=== PATIENT | male | born 2000 | race Caucasian/White ===

== ENCOUNTER 2020-12-28 15:47 | Emergency (ER) | payer OTHER ==
[2020-12-28 15:54] VITALS: BP 123/75; PULSE 88; RESP 20; TEMP 97.7
[2020-12-28] MEDS ORDERED: DIPH,PERTUS(ACELL)TETVAC-LF 0.5 ML VIAL IM ONE ×2 (16:07→16:57)
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
== END 2020-12-28 17:47 | disposition home or self-care (01) ==
LOC: EC 15:47
DX: S50.312A Abrasion of left elbow, initial encounter (principal); S50.311A Abrasion of right elbow, initial encounter; V89.2XXA Person injured in unspecified motor-vehicle accident, traffic, initial encounter; Y99.0 Civilian activity done for income or pay; Z23 Encounter for immunization
CPT/HCPCS: 90471; 90715; 99283

== ENCOUNTER → 2022-11-11 | Outpatient (CLI) | payer MEDICAID ==
--- NOTE | 2022-11-12 13:19 | CA ---
Transthoracic Echo Report Name: Cliff No Age: 22 Gender: M : 2000 Exam Date: 11/11/2022 11:36 Exam Location: [facility] Ht (in): 74 Wt (lb): 258 Ordering Physician: Krzysztof Mercado DO Attending/Referring Phys: Mary Ireland [facility] Front Desk Assistant Cindi Conde RDCS Procedure CPT: Indications: Z82.41 Cardiac Hx: Technical Quality: Fair Contrast 1: Total Dose (mL): Contrast 2: Total Dose (mL): MEASUREMENTS (Male / Female) Normal Values 2D ECHO LV Diastolic Diameter PLAX 3.8 cm 4.2 - 5.9 / 3.9 - 5.3 cm LV Systolic Diameter PLAX 2.1 cm IVS Diastolic Thickness 1.3 cm 0.6 - 1.0 / 0.6 - 0.9 cm LVPW Diastolic Thickness 1.1 cm 0.6 - 1.0 / 0.6 - 0.9 cm LV Relative Wall Thickness 0.6 RV Internal Dim ED PLAX 3.3 cm LA Volume 65.9 cm??? 18 - 58 / 22 - 52 cm??? M-MODE Aortic Root Diameter MM 2.7 cm LA Systolic Diameter MM 3.9 cm LA Ao Ratio MM 1.4 AV Cusp Separation MM 2.1 cm DOPPLER AV Peak Velocity 104.6 cm/s AV Peak Gradient 4.4 mmHg AV Mean Velocity 84.6 cm/s AV Mean Gradient 3.0 mmHg AV Velocity Time Integral 22.2 cm LVOT Peak Velocity 90.3 cm/s LVOT Peak Gradient 3.3 mmHg LVOT Velocity Time Integral 21.3 cm MV Area PHT 5.7 cm??? Mitral E Point Velocity 73.2 cm/s Mitral A Point Velocity 51.6 cm/s Mitral E to A Ratio 1.4 MV Deceleration Time 134.0 ms MV E' Velocity 10.3 cm/s Mitral E to MV E' Ratio 7.1 TR Peak Velocity 203.0 cm/s TR Peak Gradient 16.5 mmHg Right Ventricular Systolic Press 20.8 mmHg FINDINGS Left Ventricle Left ventricular cavity size normal. Normal left ventricular wall thickness. Normal left ventricular systolic function with no obvious regional wall motion abnormalities. Left ventricular ejection fraction is estimated at 55 %. Right Ventricle Normal right ventricular size and function. Right ventricular systolic pressure within normal limits. Right Atrium Normal right atrial size. Left Atrium Birderline left atrial size. Mitral Valve Structurally normal mitral valve. No mitral stenosis, regurgitation or prolapse. Aortic Valve Trileaflet aortic valve. No aortic valve stenosis or regurgitation. Tricuspid Valve Structurally normal tricuspid valve. Mild tricuspid regurgitation. Pulmonic Valve Trace pulmonic regurgitation. Pericardium No thickening/calcification of the pericardium. Aorta Normal size aortic root and proximal ascending aorta. CONCLUSIONS Left ventricular ejection fraction 55% No mitral regurgitation Mild tricuspid regurgitation RVSP 20 Previewed by: Dr. Kadeem Vaz DO (Electronically Signed) Final Date: 12 November 2022 13:19
== END | disposition home or self-care (01) ==
LOC: RADECHMAIN 11:32
PROVIDERS: ATTEND Family Medicine
DX: I36.1 Nonrheumatic tricuspid (valve) insufficiency (principal); Z82.41 Family history of sudden cardiac death
CPT/HCPCS: 93306

== ENCOUNTER 2024-12-18 13:27 | Emergency (ER) | payer MEDICAID ==
[2024-12-18 13:39] VITALS: RESP 18
[2024-12-18 14:34] LABS: Basophils # (A) 0.02 10*3/uL (0.00-0.10); Basophils % (A) 0.4 %; Eosinophils # (A) 0.02 10*3/uL (0.04-0.35); Eosinophils % (A) 0.4 %; HCT 45.2 % (39.6-50.0); HGB 16.3 g/dL (13.0-17.0); Lymphocytes # (A) 0.98 10*3/uL (0.90-5.00); Lymphocytes % (A) 20.5 %; MCH 32.5 pg (27.0-32.0); MCHC 36.1 g/dL (32.0-37.0); MCV 90.2 fL (80.0-97.0); Mean Platelet Volume 11.2 fL (9.5-12.2); Monocytes % (A) 6.3 %; Neutrophils # (A) 3.47 10*3/uL (1.80-7.70); Neutrophils % (A) 72.4 %; Platelet Count 217 10*3/uL (140-440); RBC 5.01 10*6/uL (4.40-5.60); RDW 12.1 % (11.5-14.5); WBC 4.79 10*3/uL (4.50-10.00)
[2024-12-18 14:45] LABS: ALT 37 U/L (4-49); AST 25 U/L (17-59); African American GFR (CKD) >90 (>60 ml/min/1.73 sqM); Albumin 4.8 g/dL (3.5-5.0); Alkaline Phosphatase 54 U/L (38-126); Anion Gap 9 mmol/L; Blood Urea Nitrogen 13 mg/dL (9-20); Calcium 10.2 mg/dL (8.4-10.2); Carbon Dioxide 29 mmol/L (22-30); Chloride 104 mmol/L (98-107); Glucose 85 mg/dL (74-99); Magnesium 1.9 mg/dL (1.6-2.3); Non-African American GFR(CKD) >90 (>60 ml/min/1.73 sqM); Potassium 4.3 mmol/L (3.5-5.1); Sodium 142 mmol/L (137-145); Total Bilirubin 0.7 mg/dL (0.2-1.3); Total Protein 7.3 g/dL (6.3-8.2)
[2024-12-18 14:48] LABS: Partial Thromboplastin Time 27.6 sec (22.0-30.0); Prothrombin Time 11.2 sec (10.0-12.5)
[2024-12-18] MEDS: SODIUM CHLORIDE 0.9% 1,000 ML IV STA (14:55)
[2024-12-18] MEDS: KETOROLAC 15 MG/ML 1 ML VIAL IVP STA (14:56)
[2024-12-18] MEDS: LIDOCAINE 4% PATCH TOPICAL ONE (14:58)
--- NOTE | 2024-12-18 15:10 | XR ---
EXAMINATION TYPE: XR chest 2V DATE OF EXAM: 12/18/2024 3:07 PM COMPARISON: None TECHNIQUE: XR chest 2V Frontal and lateral views of the chest. CLINICAL INDICATION:Male, 24 years old with history of Chest Pain; FINDINGS: Lungs/Pleura: There is no evidence of pleural effusion, focal consolidation, or pneumothorax. Pulmonary vascularity: Unremarkable. Heart/mediastinum: Cardiomediastinal silhouette is unremarkable. Musculoskeletal: No acute osseous pathology. IMPRESSION: No acute cardiopulmonary disease/process. [facility], , 12/18/2024 3:08 PM
--- NOTE | 2024-12-18 15:27 | ED ---
General Adult HPI - General Chief complaint: Chest Pain Stated complaint: Chest pain,Constantino arm numbness Time Seen by Provider: 12/18/24 14:26 Source: patient, RN notes reviewed, old records reviewed Mode of arrival: ambulatory Limitations: no limitations - History of Present Illness Initial comments: 24-year-old male presents emergency department for chest wall pain. Has been present for multiple days. Occasionally has his fingers to go numb as well. States he occasionally has in his forearms to. Currently does not have the numbness. Has a family history of cardiac disease. Denies any medical problems for himself. 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 Certain positions will make his hands go numb. States that his chest pain is reproducible on palpation with certain movements. Presents for further evaluation. Denies any cough, congestion, shortness of breath. Denies any nausea or vomiting or abdominal pain. Presents for further evaluation at this time. - Related Data Previous Rx's Medication Instructions Recorded Lidocaine 5% Patch [Lidoderm 5% 1 patch TOPICAL DAILY PRN 14 Days 12/18/24 Patch] #14 patch Allergies Allergy/AdvReac Type Severity Reaction Status Date / Time No Known Allergies Allergy Verified 12/18/24 13:39 Review of Systems ROS Statement: Those systems with pertinent positive or pertinent negative responses have been documented in the HPI. Review of Systems: CONST: Denies fever EYES: Denies blurry vision ENT: Denies nasal congestion C/V: Endorses chest wall pain RESP: Denies shortness of breath GI: Denies abdominal pain : Denies dysuria SKIN: Denies rash. MSK: Denies joint pain. NEURO: Denies headache ROS Other: All systems not noted in ROS Statement are negative. Past Medical History Past Medical History: No Reported History History of Any Multi-Drug Resistant Organisms: None Reported Past Surgical History: No Surgical Hx Reported Past Psychological History: No Psychological Hx Reported Smoking Status: Never smoker Past Alcohol Use History: None Reported Past Drug Use History: None Reported General Exam - General Exam Comments Initial Comments: General: Appears in no acute distress. HEAD: Normal with no signs of head trauma. EYES: PERRLA, EOMI, conjunctiva normal, no discharge. ENT: Hearing grossly intact, normal oropharynx. RESPIRATORY: Clear breath sounds bilaterally. No wheezes, rales, or rhonchi. C/V: Regular rate and rhythm. S1 and S2 auscultated, no edema, peripheral pulses 2+ and intact throughout ABD: Abd is soft, nontender, nondistended EXT: Reproducible left upper chest wall tenderness to palpation over the pectoral muscle. No obvious deformity. SKIN: No rashes or lesions observed on exposed skin. NEURO: Alert and oriented x 4.No focal deficits. No numbness. Patient's hand numbness is reproduced with the Tinel's sign. Suspect possible carpal tunnel. Limitations: no limitations Course Vital Signs 12/18/24 13:33 Temperature 98.2 F Pulse Rate 77 Respiratory 18 Rate Blood Pressure 113/71 O2 Sat by Pulse 99 Oximetry Medical Decision Making - Medical Decision Making Was pt. sent in by a medical professional or institution (, PA, ORTHOTICS PROSTHETICS ASSISTANT, urgent care, hospital, or fdc...) When possible be specific @ -No Did you speak to anyone other than the patient for history (EMS, parent, family, police, friend...)? What history was obtained from this source @ -No Did you review nursing and triage notes (agree or disagree)? Why? @ -I reviewed and agree with nursing and triage notes Were old charts reviewed (outside hosp., previous admission, EMS record, old EKG, old radiological studies, urgent care reports/EKG's, fdc records)? Report findings @ -No old charts were reviewed Differential Diagnosis (chest pain, altered mental status, abdominal pain women, abdominal pain men, vaginal bleeding, weakness, fever, dyspnea, syncope, headache, dizziness, GI bleed, back pain, seizure, CVA, palpatations, mental health, musculoskeletal)? @ -Differential Chest Pain: Stable Angina, Unstable Angina, STEMI, NSTEMI Aortic Dissection, Pneumothorax, Musculoskeletal, Esophageal Spasm GERD, Cholecystitis, Pancreatitis, Zoster, this is not meant to be an all-inclusive list. EKG interpreted by me (3pts min.). @ -As above X-rays interpreted by me (1pt min.). @ -Chest x-ray reveals no obvious acute cardiopulmonary process. CT interpreted by me (1pt min.). @ -None done U/S interpreted by me (1pt. min.). @ -None done What testing was considered but not performed or refused? (CT, X-rays, U/S, labs )? Why? @ -None What meds were considered but not given or refused? Why? @ -None Did you discuss the management of the patient with other professionals (professionals i.e. , PA, ORTHOTICS PROSTHETICS ASSISTANT, lab, RT, psych nurse, social media campaign manager, ribbing machine operator, teacher, evp chief exploration officer, welfare case worker)? Give summary @ -No Was smoking cessation discussed for >3mins.? @ -No Was critical care preformed (if so, how long)? @ -No Were there social determinants of health that impacted care today? How? (Homelessness, low income, unemployed, alcoholism, drug addiction, transportation, low edu. Level, literacy, decrease access to med. care, [facility], rehab)? @ -No Was there de-escalation of care discussed even if they declined (Discuss DNR or withdrawal of care, Hospice)? DNR status @ -No What co-morbidities impacted this encounter? (DM, HTN, Smoking, COPD, CAD, Cancer, CVA, ARF, Chemo, Hep., AIDS, mental health diagnosis, sleep apnea, morbid obesity)? @ -None Was patient admitted / discharged? Hospital course, mention meds given and route, prescriptions, significant lab abnormalities, going to OR and other pertinent info. @ -Patient presents with chest wall pain as well as what appears to be carpal tunnel symptoms. Currently does not have any numbness but is reproducible with Tinel's sign. I did discuss I do suspect this is he does work with his hands. He expressed understanding. He can follow-up with his PCP regarding this. Will obtain cardiac workup. Patient was in agreement this plan. He is given a lidoc eden patch as well as Toradol and fluids. EKG showed no signs of acute ischemia. Laboratory studies are all within acceptable limits including undetectable troponin. Chest x-ray unremarkable. On reevaluation, symptoms have improved. I believe is safe for him to be discharged home. Diagnosis chest wall pain. He was in agreement this plan. Recommend Tylenol Motrin as well as rest. He was in agreement this plan. I instructed the patient to follow up with their PCP in the next 1-3 days. I explained that the patient should return to the emergency department if they experience any worsening symptoms. Strict return precautions were discussed with the patient. The patient expressed understanding of these instructions. I answered all questions that the patient had. The patient was discharged home in good condition with their prescriptions and follow up information. Undiagnosed new problem with uncertain prognosis? @ -No Drug Therapy requiring intensive monitoring for toxicity (Heparin, Nitro, Insulin, Cardizem)? @ -No Were any procedures done? @ -No Diagnosis/symptom? @ -Chest wall pain Acute, or Chronic, or Acute on Chronic? @ -Acute Uncomplicated (without systemic symptoms) or Complicated (systemic symptoms)? @ -Uncomplicated Side effects of treatment? @ -No Exacerbation, Progression, or Severe Exacerbation? @ -No Poses a threat to life or bodily function? How? (Chest pain, [place], [place], pneumonia, PE, COPD, DKA, ARF, appy, cholecystitis, CVA, Diverticulitis, Homicidal, Suicidal, threat to staff... and all critical care pts) @ -Unlikely at this time - Lab Data Result diagrams: 12/18/24 14:25 12/18/24 14: Lab Results 12/18/24 12/18/24 12/18/24 Range/Units 14:25 14:25 14:25 WBC 4.79 (4.50-10.00) 10*3/uL RBC 5.01 (4.40-5.60) 10*6/uL Hgb 16.3 (13.0-17.0) g/dL Hct 45.2 (39.6-50.0) % MCV 90.2 (80.0-97.0) fL MCH 32.5 H (27.0-32.0) pg MCHC 36.1 (32.0-37.0) g/dL Plt Count 217 (140-440) 10*3/uL MPV 11.2 (9.5-12.2) fL Immature Gran % (Auto) 0 % Neutrophils % 72.4 % Lymphocytes % 20.5 % Monocytes % 6.3 % Eosinophils % 0.4 % Basophils % 0.4 % Immature Gran # 0.00 (0.00-0.04) 10*3/uL Neutrophils # 3.47 (1.80-7.70) 10*3/uL Lymphocytes # 0.98 (0.90-5.00) 10*3/uL Monocytes # 0.30 (0.20-1.00) 10*3/uL Eosinophils # 0.02 L (0.04-0.35) 10*3/uL Basophils # 0.02 (0.00-0.10) 10*3/uL PT 11.2 (10.0-12.5) sec INR 1.0 (<1.2) APTT 27.6 (22.0-30.0) sec Sodium 142 (137-145) mmol/L Potassium 4.3 (3.5-5.1) mmol/L Chloride 104 (98-107) mmol/L Carbon Dioxide 29 (22-30) mmol/L Anion Gap 9 mmol/L BUN 13 (9-20) mg/dL Creatinine 0.79 (0.66-1.25) mg/dL Est GFR (CKD-EPI)AfAm >90 (>60 ml/min/1.73 sqM) Est GFR (CKD-EPI)NonAf >90 (>60 ml/min/1.73 sqM) Glucose 85 (74-99) mg/dL Calcium 10.2 (8.4-10.2) mg/dL Magnesium 1.9 (1.6-2.3) mg/dL Total Bilirubin 0.7 (0.2-1.3) mg/dL AST 25 (17-59) U/L ALT 37 (4-49) U/L Alkaline Phosphatase 54 (38-126) U/L Troponin I (0.000-0.034) ng/mL Total Protein 7.3 (6.3-8.2) g/dL Albumin 4.8 (3.5-5.0) g/dL /01/07 Range/Units 14:25 WBC (4.50-10.00) 10*3/uL RBC (4.40-5.60) 10*6/uL Hgb (13.0-17.0) g/dL Hct (39.6-50.0) % MCV (80.0-97.0) fL MCH (27.0-32.0) pg MCHC (32.0-37.0) g/dL Plt Count (140-440) 10*3/uL MPV (9.5-12.2) fL Immature Gran % (Auto) % Neutrophils % % Lymphocytes % % Monocytes % % Eosinophils % % Basophils % % Immature Gran # (0.00-0.04) 10*3/uL Neutrophils # (1.80-7.70) 10*3/uL Lymphocytes # (0.90-5.00) 10*3/uL Monocytes # (0.20-1.00) 10*3/uL Eosinophils # (0.04-0.35) 10*3/uL Basophils # (0.00-0.10) 10*3/uL PT (10.0-12.5) sec INR (<1.2) APTT (22.0-30.0) sec Sodium (137-145) mmol/L Potassium (3.5-5.1) mmol/L Chloride (98-107) mmol/L Carbon Dioxide (22-30) mmol/L Anion Gap mmol/L BUN (9-20) mg/dL Creatinine (0.66-1.25) mg/dL Est GFR (CKD-EPI)AfAm (>60 ml/min/1.73 sqM) Est GFR (CKD-EPI)NonAf (>60 ml/min/1.73 sqM) Glucose (74-99) mg/dL Calcium (8.4-10.2) mg/dL Magnesium (1.6-2.3) mg/dL Total Bilirubin (0.2-1.3) mg/dL AST (17-59) U/L ALT (4-49) U/L Alkaline Phosphatase (38-126) U/L Troponin I <0.012 (0.000-0.034) ng/mL Total Protein (6.3-8.2) g/dL Albumin (3.5-5.0) g/dL - EKG Data -: EKG Interpreted by Me EKG Comments: 12-lead Electrocardiogram Interpretation Note EKG was reviewed and interpreted by myself. 12-lead ECG performed at 1346 is interpreted by me as revealing normal sinus rhythm at a rate of 70 beats per minute. [place] is normal. [place] interval is 164 ms, QRS duration is 91 ms, QTc is 379 ms.. There were no ST or T wave abnormalities to suggest myocardial ischemia or injury. R wave progression across the precordium was satisfactory. By my interpretation this EKG is non-diagnostic for acute ischemia. 12-lead Electrocardiogram Interpretation Note EKG was reviewed and interpreted by myself. 12-lead ECG performed at 1521 is interpreted by me as revealing normal sinus rhythm at a rate of 71 beats per minute. [place] is normal. [place] interval is 159 ms, QRS durations 85 ms, QTc is 385 ms.. There were no ST or T wave abnormalities to suggest myocardial ischemia or injury. R wave progression across the precordium was satisfactory. By my interpretation this EKG is non-diagnostic for acute ischemia. Disposition Clinical Impression: Chest wall pain Disposition: HOME SELF-CARE Condition: Good Instructions (If sedation given, give patient instructions): Chest Pain (ED), Costochondritis (ED) Prescriptions: Lidocaine 5% Patch [Lidoderm 5% Patch] 1 patch TOPICAL DAILY PRN 14 Days #14 patch PRN Reason: Pain Is patient prescribed a controlled substance at d/c from ED?: No Referrals: Krzysztof Mercado DO [Primary Care Provider] - 1-2 days Time of Disposition: 15:20
[2024-12-18 15:56] VITALS: BP 118/73; PULSE 61; TEMP 98.3
== END 2024-12-18 15:55 | disposition home or self-care (01) ==
LOC: EC 13:27
DX: R07.89 Other chest pain (principal)
CPT/HCPCS: 36415; 93005; 80053; 83735; 84484; 85025; 85610; 85730; 71046; 99285; 96374; 96361; J1885